=== PATIENT | female | born 1955 | race Caucasian/White ===

== ENCOUNTER 2020-06-17 12:21 | Emergency (ER) | payer MEDICAID, SELFPAY ==
[2020-06-17 12:32] VITALS: BP 122/67; PULSE 88; RESP 16; TEMP 36.6; O2SAT 98; BMI 31.3
[2020-06-17 13:45] LABS: Glucose Urine UA NEG (NEG); Leukocyte Esterase Urine 3+ (NEG); Nitrite Urine NEG (NEG); PH 5.5 (5.0-8.0); Specific Gravity - Urine 1.015 (1.005-1.025); Urine Blood TRACE (NEG); Urine Ketones NEG (NEG); Urine Protein NEG (NEG-TRACE)
[2020-06-17 13:46] LABS: Appearance Urine CLOUDY; Color Urine YELLOW
--- NOTE | 2020-06-17 13:55 | ED_ITS ---
HPI - General Adult General Chief complaint: General Medical <CHADWICK Mora - Last Filed: 06/17/20 21:10> Stated complaint: weakness, dizzy <CHADWICK Mora - Last Filed: 06/17/20 21:10> Time Seen by Provider: 06/17/20 13:55 <CHADWICK Mora - Last Filed: 06/17/20 21:10> History of Present Illness HPI narrative: Patient resides in care home, and felt like she had burning with urination and called 911 and was transported here for concern about urinary tract infection The background is the patient has been increasingly agitated anxious paranoid and worried with concern of care home staff that her medications for schizoaffective disorder bipolar depression and anxiety are not working, patient denies any suicidal thoughts and is not interested in harming any body and says she is not hearing any voices She denies abdominal pain denies back pain denies fever chills or vomiting <CHADWICK Mora - Last Filed: 06/17/20 21:10> Related Data Home medications: Home Medications Medication Instructions Recorded Confirmed acetaminophen 650 mg PO Q4H PRN 06/17/20 06/17/20 albuterol sulfate 2 puff INHALATION Q6H PRN 06/17/20 06/17/20 ascorbic acid (vitamin C) 500 mg PO DAILY 06/17/20 06/17/20 benztropine 1 mg PO BID 06/17/20 06/17/20 bisacodyl 5 mg PO BEDTIME PRN 06/17/20 06/17/20 bisacodyl 10 mg MS DAILY PRN 06/17/20 06/17/20 cholecalciferol (vitamin D3) 25 mcg PO DAILY 06/17/20 06/17/20 clozapine 100 mg PO DAILY 06/17/20 06/17/20 clozapine 300 mg PO BEDTIME 06/17/20 06/17/20 desmopressin 1 spray INTRANASAL DAILY 06/17/20 06/17/20 diazepam 5 mg PO BEDTIME PRN 06/17/20 06/17/20 ferrous sulfate 325 mg PO DAILY 06/17/20 06/17/20 fluticasone propionate 1 spray INTRANASAL DAILY 06/17/20 06/17/20 lamotrigine 100 mg PO DAILY 06/17/20 06/17/20 lamotrigine 200 mg PO BEDTIME 06/17/20 06/17/20 levothyroxine 125 mcg PO DAILY@0630 06/17/20 06/17/20 magnesium hydroxide [Milk of 30 ml PO DAILY PRN 06/17/20 06/17/20 Magnesia] melatonin 6 mg PO BEDTIME PRN 06/17/20 06/17/20 naloxone 4 mg INTRANASAL Q3M PRN 06/17/20 06/17/20 polyethylene glycol 3350 [Miralax] 17 g PO DAILY PRN 06/17/20 06/17/20 sennosides-docusate sodium [Senna 2 tab-cap PO BEDTIME PRN 06/17/20 06/17/20 Plus] tizanidine 2 mg PO TID PRN 06/17/20 06/17/20 trazodone 50 mg PO BEDTIME PRN 06/17/20 06/17/20 Previous Rx's Medication Instructions Recorded cephalexin 500 mg PO BID 5 Days #10 cap 06/18/20 <CHADWICK Mora - Last Filed: 06/17/20 21:10> Allergies/adverse reactions: Allergies Allergy/AdvReac Type Severity Reaction Status Date / Time Iodinated Contrast Media Allergy Severe ANGIOEDEMA Unverified 12/12/19 16:07 [CONTRAST, IV] acetaminophen [From PERCOCET] Allergy Unknown ANGIOEDEMA Unverified 12/12/19 16:07 amoxicillin [AMOXICILLIN] Allergy Unknown unknown Unverified 12/12/19 16:07 codeine [CODEINE] Allergy Unknown unknown Unverified 12/12/19 16:07 ibuprofen [From MOTRIN] Allergy Unknown ANAPHYLAXIS Unverified 12/12/19 16:07 levofloxacin [From LEVAQUIN] Allergy Unknown unknown Unverified 12/12/19 16:07 nitrofurantoin Allergy Unknown unknown Unverified 12/12/19 16:07 [From MACRODANTIN] oxycodone [From PERCOCET] Allergy Unknown ANGIOEDEMA Unverified 12/12/19 16:07 Penicillins [PCN] Allergy Unknown Verified 06/17/20 12:44 <CHADWICK Mora - Last Filed: 06/17/20 21:10> Review of Systems Review of Systems: Positive for dysuria and anxiety Negatives are no fever no chills no dizziness no weakness no homicidal thoughts no suicidal thoughts not hearing voices no fainting no headache no sore throat no neck pain no chest pain no abdominal pain no nausea vomiting or diarrhea, no skin rash <CHADWICK Mora - Last Filed: 06/17/20 21:10> [facility] Past Medical History Source: nursing notes reviewed <CHADWICK Mora - Last Filed: 06/17/20 21:10> Medical History: Medical History (Updated 06/19/20 @ 00:01 by Background Monik) Anemia Anxiety Ataxia Bipolar 1 disorder Borderline personality disorder Chronic kidney disease, stage 4 (severe) COPD (chronic obstructive pulmonary disease) Diabetes insipidus Dysphagia Dysphagia, oral phase Hypothyroidism Nephropathy induced by other drugs, medicaments and biological substances Obesity Other malaise Polycystic kidney disease Repeated falls Schizoaffective disorder Weakness <CHADWICK Mora - Last Filed: 06/17/20 21:10> Social History Social History: Social History Alcohol intake: never Smoking Status: Never smoker Smoked in Last 30 Days: No Use of substances other than those prescribed or required for medical reasons: No Advance Directives: No Advance Directives Information Provided: No <CHADWICK Mora - Last Filed: 06/17/20 21:10> Physical Exam Vital Signs: Vital Signs: Last Vital Signs Temp 98.3 F 06/18/20 00:00 Pulse 85 06/18/20 00:00 Resp 06/18/20 00:00 BP 133/69 06/18/20 00:00 Pulse Ox 97 06/18/20 00:00 Body Mass Index 31.3 <CHADWICK Mora - Last Filed: 06/17/20 21:10> Vital Signs: Last Vital Signs Temp 98.3 F 06/18/20 00:00 Pulse 85 06/18/20 00:00 Resp 18 06/18/20 00:00 BP 133/69 06/18/20 00:00 Pulse Ox 97 06/18/20 00:00 Body Mass Index 31.3 <Promise Ríos MD - Last Filed: 06/18/20 02:50> Vital Signs: Last Vital Signs Temp 98.3 F 06/18/20 00:00 Pulse 85 06/18/20 00:00 Resp 18 06/18/20 00:00 BP 133/69 06/18/20 00:00 Pulse Ox 97 06/18/20 00:00 Body Mass Index 31.3 <Joselo Robles MD - Last Filed: 07/02/20 15:40> General appearance is no acute distress comfortable relaxed and cooperative A&O x3 Head is normocephalic atraumatic Pharynx well hydrated Neck is supple Chest is clear to auscultation bilaterally with full symmetric equal breath sounds The heart rate and rhythm regular no murmur Abdomen soft nontender Back no CVA tenderness Extremities full range of motion x4 Neuro no focal deficit, verbal interaction and understanding are normal, motor is 5 5 x 4, sensation is intact, no facial asymmetry <CHADWICK Mora - Last Filed: 06/17/20 21:10> Course Course Course Narrative: UA was positive for urinary tract infection Creatinine is stable and similar to prior showing renal insufficiency with BUN 3 3 and creatinine 2.42 Patient's creatinine clearance is 27 so Keflex 250 3 times a day should be fine She is pending BH an evaluation to determine whether patient will be admitted inpatient for medication adjustments and possible changes and psychiatric evaluation for frequent episodes of paranoia anxiety in her care home Case is signed out to physician assistant graham at 21:00 <CHADWICK Mora - Last Filed: 06/17/20 21:10> Re-evaluation of patient and discussion with behavioral team and consensus is that patient is cleared for discharge back to correction. She denies any suicidal ideation in is at her baseline functional status without concerns for harm to herself or others. She is aware that she has a UTI and will need to continue antibiotics at her group facility. Physician observation and at 0230. Patient seen and cleared by crisis. Plan is to discharge patient to group facility. No acute distress, lungs clear, CV RRR, abdominal nontender, neuro intact. Disposition is for home. <Promise Ríos MD - Last Filed: 06/18/20 02:50> I have reviewed the chart <Joselo Robles MD - Last Filed: 07/02/20 15:40> Medical Decision Making Lab Data Result diagrams: : 06/17/20 14:43 06/17/20 14:43 <CHADWICK Mora - Last Filed: 06/17/20 21:10> Labs: Lab Results 06/17/20 06/17/20 06/17/20 Range/Units 13:37 14:43 14:43 WBC 6.7 (4.8-10.8) X10*3/uL RBC 3.69 L (4.20-5.50) X10*6/uL Hgb 11.2 L (12.0-16.0) g/dl Hct 34.3 L (37-47) % MCV 93.0 (80-98) fL MCH 30.4 (27.0-33.0) pg MCHC 32.7 (31.0-35.0) g/dl RDW 14.5 (11.0-16.0) % Plt Count 200 (160-400) X10*3/uL MPV 10.4 (9.4-12.3) fL Immature Gran % (Auto) 0.3 (0.0-0.4) % Neut % (Auto) 71.7 (45-73) % Lymph % (Auto) 20.6 (20-40) % [place] % (Auto) 7.2 (2-11) % Eos % (Auto) 0.0 (0-4) % Baso % (Auto) 0.2 (0-2) % Lymph # (Auto) 1.4 (1.2-4.9) X10*3/uL [place] # (Auto) 0.5 (0.1-1.2) X10*3/uL Eos # (Auto) 0.0 (0.0-0.4) X10*3/uL Baso # (Auto) 0.0 (0.0-0.2) X10*3/uL Abs Immat Gran (auto) 0.02 (0.00-0.03) X10*3/uL Absolute Neuts (auto) 4.8 (2.0-8.3) X10*3/uL Absolute Nucleated RBC 0.000 (0.0-0.012) X10*3/uL Nucleated RBC % (auto) 0.0 (0.0-0.2) /100WBC Sodium 141 (135-145) mmol/L Potassium 4.7 (3.3-5.1) mmol/L Chloride 106 (96-108) mmol/L Carbon Dioxide 24 (22-29) mmol/L Anion Gap 16 (12-20) BUN 33 H (9-16) mg/dL Creatinine 2.42 H (0.5-1.4) mg/dL Estim Creat Clear Calc 27.1 Estimated GFR 20 Random Glucose 78 (60-115) mg/dL Calcium 8.6 (8.4-10.2) mg/dL Urine Color YELLOW Urine Appearance CLOUDY Urine pH 5.5 (5.0-8.0) Ur Specific [place] 1.015 (1.005-1.025) Urine Protein NEG (NEG-TRACE) MG/DL Urine Glucose (UA) NEG (NEG) MG/DL Urine Ketones NEG (NEG) MG/DL Urine Blood TRACE (NEG) Urine Nitrite NEG (NEG) Ur Leukocyte Esterase 3+ H (NEG) Urine RBC 1-4 (0) /HPF Urine WBC TNTC H (0-4) /HPF Ur Squamous Epith Cells 1+ /LPF Urine Bacteria TRACE /LPF Urine Mucus 1+ /LPF Urine Yeast 1+ /HPF <CHADWICK Mora - Last Filed: 06/17/20 21:10> Lab Results 06/17/20 06/17/20 06/17/20 Range/Units 13:37 14:43 14:43 WBC 6.7 (4.8-10.8) X10*3/uL RBC 3.69 L (4.20-5.50) X10*6/uL Hgb 11.2 L (12.0-16.0) g/dl Hct 34.3 L (37-47) % MCV 93.0 (80-98) fL MCH 30.4 (27.0-33.0) pg MCHC 32.7 (31.0-35.0) g/dl RDW 14.5 (11.0-16.0) % Plt Count 200 (160-400) X10*3/uL MPV 10.4 (9.4-12.3) fL Immature Gran % (Auto) 0.3 (0.0-0.4) % Neut % (Auto) 71.7 (45-73) % Lymph % (Auto) 20.6 (20-40) % [place] % (Auto) 7.2 (2-11) % Eos % (Auto) 0.0 (0-4) % Baso % (Auto) 0.2 (0-2) % Lymph # (Auto) 1.4 (1.2-4.9) X10*3/uL [place] # (Auto) 0.5 (0.1-1.2) X10*3/uL Eos # (Auto) 0.0 (0.0-0.4) X10*3/uL Baso # (Auto) 0.0 (0.0-0.2) X10*3/uL Abs Immat Gran (auto) 0.02 (0.00-0.03) X10*3/uL Absolute Neuts (auto) 4.8 (2.0-8.3) X10*3/uL Absolute Nucleated RBC 0.000 (0.0-0.012) X10*3/uL Nucleated RBC % (auto) 0.0 (0.0-0.2) /100WBC Sodium 141 (135-145) mmol/L Potassium 4.7 (3.3-5.1) mmol/L Chloride 106 (96-108) mmol/L Carbon Dioxide 24 (22-29) mmol/L Anion Gap 16 (12-20) BUN 33 H (9-16) mg/dL Creatinine 2.42 H (0.5-1.4) mg/dL Estim Creat Clear Calc 27.1 Estimated GFR 20 Random Glucose 78 (60-115) mg/dL Calcium 8.6 (8.4-10.2) mg/dL Urine Color YELLOW Urine Appearance CLOUDY Urine pH 5.5 (5.0-8.0) Ur Specific [place] 1.015 (1.005-1.025) Urine Protein NEG (NEG-TRACE) MG/DL Urine Glucose (UA) NEG (NEG) MG/DL Urine Ketones NEG (NEG) MG/DL Urine Blood TRACE (NEG) Urine Nitrite NEG (NEG) Ur Leukocyte Esterase 3+ H (NEG) Urine RBC 1-4 (0) /HPF Urine WBC TNTC H (0-4) /HPF Ur Squamous Epith Cells 1+ /LPF Urine Bacteria TRACE /LPF Urine Mucus 1+ /LPF Urine Yeast 1+ /HPF <Promise Ríos MD - Last Filed: 06/18/20 02:50> Lab Results 06/17/20 06/17/20 06/17/20 Range/Units 13:37 14:43 14:43 WBC 6.7 (4.8-10.8) X10*3/uL RBC 3.69 L (4.20-5.50) X10*6/uL Hgb 11.2 L (12.0-16.0) g/dl Hct 34.3 L (37-47) % MCV 93.0 (80-98) fL MCH 30.4 (27.0-33.0) pg MCHC 32.7 (31.0-35.0) g/dl RDW 14.5 (11.0-16.0) % Plt Count 200 (160-400) X10*3/uL MPV 10.4 (9.4-12.3) fL Immature Gran % (Auto) 0.3 (0.0-0.4) % Neut % (Auto) 71.7 (45-73) % Lymph % (Auto) 20.6 (20-40) % [place] % (Auto) 7.2 (2-11) % Eos % (Auto) 0.0 (0-4) % Baso % (Auto) 0.2 (0-2) % Lymph # (Auto) 1.4 (1.2-4.9) X10*3/uL [place] # (Auto) 0.5 (0.1-1.2) X10*3/uL Eos # (Auto) 0.0 (0.0-0.4) X10*3/uL Baso # (Auto) 0.0 (0.0-0.2) X10*3/uL Abs Immat Gran (auto) 0.02 (0.00-0.03) X10*3/uL Absolute Neuts (auto) 4.8 (2.0-8.3) X10*3/uL Absolute Nucleated RBC 0.000 (0.0-0.012) X10*3/uL Nucleated RBC % (auto) 0.0 (0.0-0.2) /100WBC Sodium 141 (135-145) mmol/L Potassium 4.7 (3.3-5.1) mmol/L Chloride 106 (96-108) mmol/L Carbon Dioxide 24 (22-29) mmol/L Anion Gap 16 (12-20) BUN 33 H (9-16) mg/dL Creatinine 2.42 H (0.5-1.4) mg/dL Estim Creat Clear Calc 27.1 Estimated GFR 20 Random Glucose 78 (60-115) mg/dL Calcium 8.6 (8.4-10.2) mg/dL Urine Color YELLOW Urine Appearance CLOUDY Urine pH 5.5 (5.0-8.0) Ur Specific [place] 1.015 (1.005-1.025) Urine Protein NEG (NEG-TRACE) MG/DL Urine Glucose (UA) NEG (NEG) MG/DL Urine Ketones NEG (NEG) MG/DL Urine Blood TRACE (NEG) Urine Nitrite NEG (NEG) Ur Leukocyte Esterase 3+ H (NEG) Urine RBC 1-4 (0) /HPF Urine WBC TNTC H (0-4) /HPF Ur Squamous Epith Cells 1+ /LPF Urine Bacteria TRACE /LPF Urine Mucus 1+ /LPF Urine Yeast 1+ /HPF <Joselo Robles MD - Last Filed: 07/02/20 15:40> Discharge Plan Discharge Clinical Impression: UTI (urinary tract infection) <CHADWICK Mora - Last Filed: 06/17/20 21:10> Patient Disposition: Xfer Other <CHADWICK Mora - Last Filed: 06/17/20 21:10> Instructions: Urinary Tract Infection in Women (ED) <CHADWICK Mora - Last Filed: 06/17/20 21:10> Additional Instructions: Do not hesitate to return to the emergency department should you develop any acute worsening of your symptoms. <CHADWICK Mora - Last Filed: 06/17/20 21:10> Prescriptions: New cephalexin 500 mg capsule 500 mg PO BID 5 Days Qty: 10 RF: 0 Continued acetaminophen 325 mg Tablet 650 mg PO Q4H PRN (Reason: Fever Or Pain) RF: 0 clozapine 100 mg Tablet 100 mg PO DAILY RF: 0 desmopressin 10 mcg/spray (0.1 mL) [place] With Pump 1 spray INTRANASAL DAILY RF: 0 bisacodyl 10 mg Suppository 10 mg MS DAILY PRN (Reason: Constipation) RF: 0 benztropine 1 mg Tablet 1 mg PO BID RF: 0 albuterol sulfate 90 mcg/actuation Hfa Aerosol Inhaler 2 puff INHALATION Q6H PRN (Reason: Shortness Of Breath Or Wheezing) RF: 0 diazepam 5 mg Tablet 5 mg PO BEDTIME PRN (Reason: Anxiety) RF: 0 bisacodyl 5 mg Tablet 5 mg PO BEDTIME PRN (Reason: Constipation) RF: 0 cholecalciferol (vitamin D3) 25 mcg (1,000 unit) Tablet 25 mcg PO DAILY RF: 0 ascorbic acid (vitamin C) 500 mg Tablet 500 mg PO DAILY RF: 0 lamotrigine 200 mg Tablet 200 mg PO BEDTIME RF: 0 trazodone 50 mg Tablet 50 mg PO BEDTIME PRN (Reason: Insomnia) RF: 0 polyethylene glycol 3350 [Miralax] 17 gram Powder In Packet 17 g PO DAILY PRN (Reason: Constipation) RF: 0 sennosides-docusate sodium [Senna Plus] 8.6-50 mg Tablet 2 tab-cap PO BEDTIME PRN (Reason: Constipation) RF: 0 melatonin 3 mg Tablet 6 mg PO BEDTIME PRN (Reason: Insomnia) RF: 0 magnesium hydroxide [Milk of Magnesia] 400 mg/5 mL Suspension 30 ml PO DAILY PRN (Reason: Constipation) RF: 0 ferrous sulfate 325 mg (65 mg iron) Tablet 325 mg PO DAILY RF: 0 levothyroxine 125 mcg Tablet 125 mcg PO DAILY@0630 RF: 0 fluticasone propionate 50 mcg/actuation [place],Suspension 1 spray INTRANASAL DAILY RF: 0 lamotrigine 100 mg Tablet 100 mg PO DAILY RF: 0 clozapine 150 mg Tablet,Disintegrating 300 mg PO BEDTIME RF: 0 naloxone 4 mg/actuation [place],Non-Aerosol 4 mg INTRANASAL Q3M PRN (Reason: Opioid Overdose) RF: 0 tizanidine 2 mg Tablet 2 mg PO TID PRN (Reason: MUSCLE WEAKNESS) RF: 0 <CHADWICK Mora - Last Filed: 06/17/20 21:10> Referrals: Marly Yarbrough MD [Primary Care Provider] - 2 days <CHADWICK Mora - Last Filed: 06/17/20 21:10> Interventions: ED Discharge Assessment Last Done: 06/18/20 03:18 <CHADWICK Mora - Last Filed: 06/17/20 21:10> Discharge Date/Time: 06/18/20 03:18 <CHADWICK Mora - Last Filed: 06/17/20 21:10>
[2020-06-17 13:57] LABS: WBC Urine TNTC /HPF (0-4)
[2020-06-17 13:58] LABS: Bacteria Urine TRACE /LPF; Mucus Urine 1+ /LPF; Squamous Epithelial Cell Urine 1+ /LPF
[2020-06-17 14:49] LABS: Basophils Percent Auto 0.2 % (0-2); Hematocrit 34.3 % (37-47); Hemoglobin 11.2 g/dl (12.0-16.0); Imm Gran Abs Auto 0.02 X10*3/uL (0.00-0.03); Imm Gran Pct Auto 0.3 % (0.0-0.4); Lymphocytes Absolute Auto 1.4 X10*3/uL (1.2-4.9); Lymphocytes Percent Auto 20.6 % (20-40); MANUAL DIFF FLAG NO; Mean Corpuscular HGB Conc 32.7 g/dl (31.0-35.0); Mean Corpuscular Hemoglobin 30.4 pg (27.0-33.0); Mean Platelet Volume 10.4 fL (9.4-12.3); Monocytes Absolute Auto 0.5 X10*3/uL (0.1-1.2); Monocytes Percent Auto 7.2 % (2-11); Neutrophils Absolute Auto 4.8 X10*3/uL (2.0-8.3); Neutrophils Percent Auto 71.7 % (45-73); Platelet Count 200 X10*3/uL (160-400); Red Blood Count 3.69 X10*6/uL (4.20-5.50); Red Cell Distribution Width 14.5 % (11.0-16.0); White Blood Count 6.7 X10*3/uL (4.8-10.8)
--- NOTE | 2020-06-17 14:50 | PC.NURSE ---
report taken from Aba RIVERA. Client from [facility]. Coming for rule out UTI. Client lying in bed at this time. Appears in nad, equal and non labored rr noted.
[2020-06-17 15:10] VITALS: BP 131/72; PULSE 78; RESP 18; TEMP 36.7; O2SAT 98
[2020-06-17 15:10] LABS: Anion Gap 16 (12-20); Blood Urea Nitrogen 33 mg/dL (9-16); Calcium 8.6 mg/dL (8.4-10.2); Carbon Dioxide 24 mmol/L (22-29); Chloride 106 mmol/L (96-108); Creatinine Clr Calc Pharmacy 27.1; Estimated Glomerular Filt Rate 20; Glucose Random 78 mg/dL (60-115); Potassium 4.7 mmol/L (3.3-5.1); Sodium 141 mmol/L (135-145)
--- NOTE | 2020-06-17 15:25 | PC.NURSE ---
client requested to speak to Care team regarding anxiety. contracts for safety. given food and drink okayed per dana lazcano. client offers no further needs.wants.
--- NOTE | 2020-06-17 15:42 | PC.NURSE ---
client brought to bathroom with 1 assist with steri lift. tolerated well
[2020-06-17 16:00] VITALS: BP 142/69; PULSE 75; RESP 16; TEMP 36.6; O2SAT 99
--- NOTE | 2020-06-17 16:47 | PC.NURSE ---
client sleeping at this time. nad noted.
--- NOTE | 2020-06-17 17:03 | MHC.CM.ED ---
CM met with patient. Pt is A&O x3. Pt states she has been at [facility] for 6 months, but has an apartment and wants to live there. States she has been told she cannot care for herself. Pt has multiple psychiatric diagnosis. Per nurse Wen at [facility], pt fixates on something and it's very hard to re-direct her. Pt feels SNF is lying to her about UTI. Pt was seen this week at [facility] and was not diagnosed with UTI per nurse Carver at [facility]. Pt called 911 herself to come to hospital. Justice Penaloza spoke with Grace director of social services and ordered a crisis evaluation. ?inpatient psych vs return to SNF. SNF requesting medication review also. Pt. tells CM she uses a walker and a wheelchair, as she had surgery on her left foot and cannot walk well. Expect pt will return to SNF after evaluations. CM to follow for d/c needs.
[2020-06-17 18:00] VITALS: BP 127/52; PULSE 76; RESP 16; TEMP 36.9; O2SAT 99
--- NOTE | 2020-06-17 18:46 | PC.NURSE ---
[facility] called and confirmed they recieved the fax.
--- NOTE | 2020-06-17 18:48 | PC.NURSE ---
PATIENT WAS ASSISTED TO BATHROOM WITH THE [facility] AND MYSELF.
--- NOTE | 2020-06-17 19:27 | PC.NURSE ---
client requesting ativan at this time. kellen cortez aware.
[2020-06-17] MEDS: cephALEXin 250 MG CAPSULE PO (19:37)
[2020-06-17] MEDS: LORazepam 1 MG TABLET PO (19:37)
[2020-06-17] MEDS: lamoTRIgine 100 MG TABLET 200 MG PO (21:37)
[2020-06-17] MEDS: traZODone HCL 50 MG TABLET PO (21:37)
[2020-06-17] MEDS: Melatonin 3 MG TABLET 6 MG PO (21:37)
[2020-06-17] MEDS: Benztropine Mesylate 1 MG TABLET PO (21:37)
[2020-06-17] MEDS: diazePAM 5 MG TABLET PO (21:37)
[2020-06-17 22:32] VITALS: RESP 16
[2020-06-17 22:34] VITALS: RESP 16
[2020-06-18] VITALS: BP 133/69; PULSE 85; RESP 18; TEMP 36.8; O2SAT 97
[2020-06-18] MEDS: LORazepam 0.5 MG TABLET 0.25 MG PO (03:14)
== END 2020-06-18 03:18 | disposition other institution (70) ==
PROVIDERS: Physician Assistant Medical; Emergency Provider Emergency Medicine; PCP Internal Medicine
DX: N39.0 Urinary tract infection, site not specified (principal); R53.1 Weakness; F41.9 Anxiety disorder, unspecified; E11.22 Type 2 diabetes mellitus with diabetic chronic kidney disease; N18.4 Chronic kidney disease, stage 4 (severe); D64.9 Anemia, unspecified; F31.9 Bipolar disorder, unspecified; F25.9 Schizoaffective disorder, unspecified; J44.9 Chronic obstructive pulmonary disease, unspecified; Z79.899 Other long term (current) drug therapy
CPT/HCPCS: 36415; 80048; 81001; 85025; 99284